=== PATIENT | male | born 1980 | race Caucasian/White ===

== ENCOUNTER 2016-03-28 17:50 | Day surgery (SDC) | payer MEDICAID ==
[~2016-03-28] VITALS: Ht 172.7 cm; Wt 83.0 kg
[~2016-03-28 17:50] MED LIST: HYDR-3498 PO; HYDR-762 PO
[2016-03-28 18:03] VITALS: Ht 172.7 cm; Wt 83.0 kg
[2016-03-28] MEDS ORDERED: morphine 4 MG/ML VIAL IV STA (19:48)
[2016-03-28] MEDS ORDERED: ONDANSETRON 4 MG INJ IV STA (19:48)
[2016-03-28] MEDS ORDERED: FAMOTIDINE 20 MG INJ IV STA (19:48)
--- NOTE | 2016-03-28 20:26 | ERD ---
ER Documentation Chief Complaint Date/Time DATE: 03/28/16 TIME: 20:23 Chief Complaint ABD PAIN X 2 HRS HPI This is a 35-year-old male who presents to the emergency department today complaining of abdominal pain for the past 3 hours. Patient states that he has also had some vomiting when he got here to the emergency room. States that his pain started after getting in an argument with his girlfriend. Denies any fevers or chills. Denies dysuria. States his last BM was this morning. ROS All systems reviewed and are negative except as per history of present illness. Medications Home Meds Active Scripts Hydrocodone Bit-Acetaminophen* ([place]*) 10-325 Mg Tablet, 1 TAB PO Q6 Y for PAIN , #10 TAB Prov:VIDYA SOLANO MD 12/23/14 Hydrocodone Bit-Acetaminophen* ([place]*) 5-325 Mg Tab, 1 TAB PO Q6 Y for PAIN, # 20 TAB Prov:RELL LEYVA 12/12/14 Allergies Allergies: Coded Allergies: No Known Allergy (Unverified , 12/12/14) PMhx/Soc Medical and Surgical Hx: pt denies Medical Hx, pt denies Surgical Hx History of Surgery: No Anesthesia Reaction: No Hx Neurological Disorder: No Hx Respiratory Disorders: No Hx Cardiac Disorders: No Hx Psychiatric Problems: No Hx Miscellaneous Medical Probl: No Hx Alcohol Use: No Hx Substance Use: No Hx Tobacco Use: No Smoking Status: Never smoker Physical Exam Vitals Vital Signs Date Time Temp Pulse Resp B/P Pulse Ox O2 Delivery O2 Flow Rate FiO2 03/28/16 18:03 98.1 67 18 142/79 98 Physical Exam Const: No acute distress Head: Atraumatic Eyes: Normal Conjunctiva ENT: Normal External Ears, Nose and Mouth. Neck: Full range of motion..~ No meningismus. Resp: Clear to auscultation bilaterally Cardio: Regular rate and rhythm, no murmurs Abd: Soft, epigastric pain non distended. Normal bowel sounds. Right lower quadrant pain and tenderness at McBurney's. No left lower quadrant pain. Skin: No petechiae or rashes Back: No midline or flank tenderness Ext: No cyanosis, or edema Neur: Awake and alert Psych: Normal Mood and Affect Result Diagram: 03/28/16200903/28/162009 Results 24 hrs Laboratory Tests Test 03/28/16 20:10 Alanine Aminotransferase (ALT/SGPT) 159IU/L Albumin 4.7g/dl Albumin/Globulin Ratio 1.23 Alkaline Phosphatase 67IU/L Anion Gap 18 Aspartate Amino Transf (AST/SGOT) 68IU/L Basophils # 0.010^3/ul Basophils % 0.2% Blood Urea Nitrogen 12mg/dl Calcium Level 9.5mg/dl Carbon Dioxide Level 29mmol/L Chloride Level 100mmol/L Creatinine 0.81mg/dl Direct Bilirubin 0.00mg/dl Eosinophils # 0.010^3/ul Eosinophils % 0.2% Globulin 3.80g/dl Glucose Level 120mg/dl Hematocrit 46.4% Hemoglobin 15.9g/dl Indirect Bilirubin 0.6mg/dl Lipase 22U/L Lymphocytes # 1.010^3/ul Lymphocytes % 5.9% Mean Corpuscular Hemoglobin 29.7pg Mean Corpuscular Hemoglobin Concent 34.3g/dl Mean Corpuscular Volume 86.5fl Mean Platelet Volume 10.0fl Monocytes # 0.710^3/ul Monocytes % 3.9% Neutrophils # 15.510^3/ul Neutrophils % 89.8% Nucleated Red Blood Cells # 0.010^3/ul Nucleated Red Blood Cells % 0.0/100WBC Platelet Count 47344^3/UL Potassium Level 4.5mmol/L Red Blood Count 5.3610^6/ul Red Cell Distribution Width 13.1% Sodium Level 142mmol/L Total Bilirubin 0.6mg/dl Total Protein 8.5g/dl Urine Bacteria RARE Urine Bilirubin 1+ Urine Clarity CLEAR Urine Color YELLOW Urine Glucose NEGATIVE% Urine Hemoglobin NEGATIVE Urine Ictotest NEGATIVE Urine Ketones NEGATIVE Urine Leukocyte Esterase NEGATIVE Urine Microscopic RBC NONE SEEN/HPF Urine Microscopic WBC 0-2/HPF Urine Mucus MODERATE Urine Nitrite NEGATIVE Urine Specific [place] >=1.030 Urine Squamous Epithelial Cells FEW Urine Total Protein TRACE Urine Urobilinogen 0.2 E.U./dL Urine pH 5.5 White Blood Count 17.210^3/ul Current Medications Medications (Trade) Dose Ordered Sig/Elo Route PRN Reason Start Time Stop Time Status Last Admin Dose Admin Morphine Sulfate (morphine) 4 mg ONCE STAT IV 03/28/16 19:48 03/28/16 19:50 DC 03/28/16 20:09 Ondansetron HCl (Zofran Inj) 4 mg ONCE STAT IV 03/28/16 19:48 03/28/16 19:50 DC 03/28/16 20:18 Famotidine 20 mg 20 mg ONCE STAT IV 03/28/16 19:48 03/28/16 19:50 DC 03/28/16 20:11 Sodium Chloride (NS) 1,000 ml @ 1,000 mls/hr Q1H ONCE IV 03/28/16 21:30 03/28/16 22:29 03/28/16 21:15 DIAGNOSTIC IMAGING REPORT Patient: ANTHONY YOUSSEF : 1980 Age: 35 Sex: M MR #: [id number] DOS: 03/28/161947 Ordering MD: BAILEY TOPETE PA-C Location: [facility] Room/Bed: PROCEDURE: CT abdomen and pelvis without contrast. CLINICAL INDICATION: Epigastric and right lower quadrant pain TECHNIQUE: CT scan of the abdomen and pelvis without contrast was performed on the [employer] volumetric [address] scanner . The patient was scanned without intravenous contrast. 3-D coronal reformatted images were obtained from the axial source images. CTDI 10.99 mGy DLP = 61 2.59 mGy-cm One or more of the following dose reduction techniques were used: Automated exposure control Adjustment of the mA and / or kV according to patient size Use of iterative reconstruction technique. COMPARISON: None. FINDINGS: CT abdomen/pelvis: The lung bases are clear. There is fatty infiltration of the liver with regions of focal fatty sparing. The gallbladder appears normal. The spleen, adrenal glands, and pancreas are normal. The kidneys are grossly unremarkable, without evidence of renal or ureteral calculus. There is no hydronephrosis. The appendix is mildly thickened, measuring up to 9 mm in diameter, and there is mild periappendiceal fat stranding. There is no free air or free fluid. There is no evidence of obstruction. The bladder is grossly unremarkable There are no suspicious osseous lesions. IMPRESSION: 1. Mild appendiceal wall thickening and periappendiceal fat stranding, concerning for acute appendicitis in the appropriate clinical setting. No free air or free fluid. 2. No renal or ureteral calculi. No hydronephrosis. 3. Fatty liver. Findings discussed with EFREM Fuentes PA-C at 03/28/2016 8:44:44 PM RPTAT: UU .Deven Abraham MD, MD Date Time Electronically viewed and signed by .Deven Abraham MD, on 03/28/2016 20: 45 .K/ CC: BAILEY TOPETE PA-C Procedures/MDM This is a 35-year-old male who presents to the emergency department today complaining of abdominal pain for the past couple of hours. On physical exam patient had a significant amount of epigastric and right lower quadrant pain and if I did obtain laboratory work as well as imaging. Laboratory work wasn't elevated white blood cell count of 17.2. Patient is not anemic. His platelets are within normal limits. Electrolytes are within normal limits. Liver function is elevated. Lipase is within normal limits. UA is negative for infection. CT abdomen and pelvis noncontrast shows a mild appendiceal wall thickening and periappendiceal fat stranding concerning for acute appendicitis. There is no free air or free fluid. There is no renal or ureteral cocci. There is no hydronephrosis. There is fatty infiltration of the liver. Gallbladder appears normal. I received a call from the radiologist Dr. Abraham Patients abdominal pain consistent with acute appendicitis. Patient was given morphine, Pepcid, Zofran, fluids and Invanz here in the emergency department. The case with Dr. Cabrera who suggested I speak to Dr. Grove the general surgeon on-call and the patient will go to the OR. Any further documentation or orders placed will be placed by Dr. Cabrera or the surgeon. Departure Diagnosis: Primary Impression: Acute appendicitis Acute appendicitis type: unspecified acute appendicitis type Qualified Code: K35.80 - Acute appendicitis, unspecified acute appendicitis type Condition: Fair BAILEY TOPETE PA-C Mar 28, 2016 20:26
[2016-03-28 20:31] LABS: ALBUMIN 4.7 g/dl (3.3-4.9); POTASSIUM 4.5 mmol/L (3.5-5.1)
[2016-03-28 20:33] LABS: CREATININE 0.81 mg/dl (0.61-1.24)
[2016-03-28 20:34] LABS: ALBUMIN/GLOBULIN RATIO 1.23; BASOPHILS % 0.2 % (0.0-2.0); BILIRUBIN,INDIRECT 0.6 mg/dl (0-1.1); BILIRUBIN,TOTAL 0.6 mg/dl (0.2-1.3); CALCIUM 9.5 mg/dl (8.4-10.2); EOSINOPHILS % 0.2 % (0.0-7.0); HEMATOCRIT 46.4 % (42.0-52.0); HEMOGLOBIN 15.9 g/dl (14.0-18.0); LYMPHOCYTES % 5.9 % (15.0-51.0); MEAN CORPUSCULAR HEMOGLOBIN 29.7 pg (29.0-33.0); MEAN CORPUSCULAR HGB CONC 34.3 g/dl (32.0-37.0); MEAN CORPUSCULAR VOLUME 86.5 fl (82.0-101.0); MONOCYTE # 0.7 10^3/ul (0.3-0.9); MONOCYTES % 3.9 % (0.0-11.0); NEUTROPHIL # 15.5 10^3/ul (1.6-7.5); NEUTROPHILS % 89.8 % (39.0-77.0); PLATELET COUNT 229 10^3/UL (140-440); RED BLOOD COUNT 5.36 10^6/ul (4.70-6.10); RED CELL DISTRIBUTION WIDTH 13.1 % (11.5-14.5); TOTAL PROTEIN 8.5 g/dl (6.1-8.1); UNCORRECTED WBC 17.2 10^3/ul (4.8-10.8); WHITE BLOOD COUNT 17.2 10^3/ul (4.8-10.8)
[2016-03-28 20:39] LABS: CONDITION 1
[2016-03-28 20:43] LABS: ADD UMIC YES; URINE BILIRUBIN (Dip) 1+ (NEGATIVE); URINE BLOOD (Dip) NEGATIVE (NEGATIVE); URINE COLOR YELLOW (YELLOW); URINE GLUCOSE (Dip) NEGATIVE (NEGATIVE); URINE KETONES (Dip) NEGATIVE (NEGATIVE); URINE LEUKOCYTE ESTERASE (Dip) NEGATIVE (NEGATIVE); URINE NITRITE (Dip) NEGATIVE (NEGATIVE); URINE TOTAL PROTEIN (Dip) TRACE (NEGATIVE); URINE UROBILINOGEN (Dip) 0.2 E.U./dL (0.1-1.0)
--- NOTE | 2016-03-28 20:45 | RADRPT ---
PROCEDURE: CT abdomen and pelvis without contrast. CLINICAL INDICATION: Epigastric and right lower quadrant pain TECHNIQUE: CT scan of the abdomen and pelvis without contrast was performed on the [employer] volumetric [address] scanner . The patient was scanned without intravenous contrast. 3-D coronal reformatted images were obtained from the axial source images. CTDI 10.99 mGy DLP = 61 2.59 mGy-cm One or more of the following dose reduction techniques were used: Automated exposure control Adjustment of the mA and / or kV according to patient size Use of iterative reconstruction technique. COMPARISON: None. FINDINGS: CT abdomen/pelvis: The lung bases are clear. There is fatty infiltration of the liver with regions of focal fatty sparing. The gallbladder appea rs normal. The spleen, adrenal glands, and pancreas are normal. The kidneys are grossly unremarkable, without evidence of renal or ureteral calculus. There is no h ydronephrosis. The appendix is mildly thickened, measuring up to 9 mm in diameter, and there is mild periappendicea l fat stranding. There is no free air or free fluid. There is no evidence of obstruction. The bladder is grossly unremarkable There are no suspicious osseous lesions. IMPRESSION: 1. Mild appendiceal wall thickening and periappendiceal fat stranding, concerning for acute appendi citis in the appropriate clinical setting. No free air or free fluid. 2. No renal or ureteral calculi. No hydronephrosis. 3. Fatty liver. Findings discussed with EFREM Fuentes PA-C at 03/28/2016 8:44:44 PM RPTAT: UU .Deven Abraham MD, MD Date Time Electronically viewed and signed by .Deven Abraham MD, on 03/28/2016 20:45 .K/
[2016-03-28 21:05] LABS: ICTOTEST NEGATIVE (NEGATIVE)
[2016-03-28 21:06] LABS: SQUAMOUS EPITHELIAL CELL,UR FEW; URINE RBCS NONE SEEN /HPF (0)
[2016-03-28 21:07] LABS: BACTERIA,URINE RARE; MUCUS,URINE MODERATE
[2016-03-28] MEDS ORDERED: ACETAMINOPHEN 325 MG TAB PO PRN (21:30)
[2016-03-28] MEDS ORDERED: ONDANSETRON 4 MG INJ IV PRN ×3 (21:30→23:30)
[2016-03-28] MEDS ORDERED: ERTAPENEM SODIUM 1 GM in SOD CHLORIDE 0.9% 100 ML IVPB ONE (21:30)
[2016-03-28] MEDS ORDERED: SOD CHLORIDE 0.9% 1,000 ML IV ONE (21:30)
[2016-03-28] MEDS ORDERED: BUPIVACAINE 0.25%/EPI (SDV) 30 ML INJ ONE (21:47)
[2016-03-28] MEDS ORDERED: LIDOCAINE 1%/EPI (MDV) 20 ML INJ ONE (21:47)
[2016-03-28] MEDS ORDERED: FENTAnyl 50 MCG/ML VIAL ONE (22:25)
[2016-03-28] MEDS ORDERED: MIDAZOLAM 1 MG/ML 2 ML INJ ONE (22:25)
[2016-03-28] MEDS ORDERED: SUCCINYLCHOLINE CHLORIDE 100 MG/5 ML SYG IV ONE (22:26)
[2016-03-28] MEDS ORDERED: PROPOFOL 20 ML ONE (22:26)
[2016-03-28] MEDS ORDERED: LIDOCAINE 2% (SDV) 5 ML INJ ONE (22:26)
[2016-03-28] MEDS ORDERED: OXYCODONE/ACETAMINOPHEN (5/325) TAB PO PRN ×4 (22:30→23:30)
[2016-03-28] MEDS ORDERED: morphine 10 MG INJ IM PRN (22:30)
--- NOTE | 2016-03-28 22:31 | CONS ---
DATE OF ADMISSION: 03/28/2016 DATE OF CONSULTATION: 03/28/2016 HISTORY OF PRESENT ILLNESS: Mr. Marti a 35-year-old male who was in his usual state of heal th today until he developed acute onset of abdominal pain. His symptoms were so severe he presented to the ER. He had an episode of emesis here in the ER. Denies prior symptoms. PAST MEDICAL HISTORY: Noncontributory. PAST SURGICAL HISTORY: None. MEDICATIONS: None. ALLERGIES: NO KNOWN DRUG ALLERGIES. SOCIAL HISTORY: Drinks occasionally. Denies smoking or drug use. PHYSICAL EXAMINATION: GENERAL: He is a well-developed, well-nourished male in no apparent distress. He is currently afeb rile. VITAL SIGNS: Stable. CHEST: Clear to auscultation bilaterally. HEART: Regular rhythm. ABDOMEN: Soft, nondistended but significant right lower quadrant tenderness. LABORATORY DATA: White count of 17, hematocrit of 46 and platelets of 229. Sodium 142, potassium 4 .5, chloride 100, CO2 29, BUN and creatinine 12 and 0.8 and glucose 120. IMAGING: A CT was consistent with acute appendicitis. ASSESSMENT AND PLAN: Mr. Marti is a 35-year-old male with acute appendicitis. I discussed laparoscopic, possible open appendectomy with the patient. All benefits, risks, alternatives discus sed in detail. All questions answered. The patient elects to proceed. Dictated By: NORMA CHOI/AJ Conf#: [id number] DID#: [id number]
[2016-03-28] MEDS ORDERED: METOCLOPRAMIDE 10 MG INJ ONE (22:55)
[2016-03-28] MEDS ORDERED: ONDANSETRON 4 MG INJ ONE (22:55)
[2016-03-28] MEDS ORDERED: ROCURONIUM 50 MG INJ ONE (22:55)
[2016-03-28] MEDS ORDERED: NEOSTIGMINE 3 MG/3 ML SYRINGE ONE ×2 (22:58)
[2016-03-28] MEDS ORDERED: GLYCOPYRROLATE 0.4 MG INJ ONE ×2 (22:58)
[2016-03-28 23:30] VITALS: BP 126/68; RESP 16
[2016-03-28] MEDS ORDERED: MEPERIDINE 25 MG INJ IV PRN (23:30)
[2016-03-28] MEDS ORDERED: PROCHLORPERAZINE 10 MG INJ IV PRN (23:30)
[2016-03-28] MEDS ORDERED: HYDROmorphONE (0.2 MG/ML) 10ML SYG IV PRN ×2 (23:30)
[2016-03-28] MEDS ORDERED: DIPHENHYDRAMINE 50 MG INJ IV PRN (23:30)
[2016-03-28] MEDS: FENTAnyl 50 MCG/ML VIAL IV PRN ×2 (23:32→23:45)
[2016-03-28 23:35] VITALS: BP 132/80; RESP 16
[2016-03-28 23:40] VITALS: BP 125/70; RESP 16
[2016-03-28 23:45] VITALS: BP 133/74; RESP 16
--- NOTE | 2016-03-28 23:45 | OPR ---
DATE OF OPERATION: 03/28/2016 PREOPERATIVE DIAGNOSIS: Acute appendicitis. POSTOPERATIVE DIAGNOSIS: Acute appendicitis. PROCEDURE: Laparoscopic appendectomy. SURGEON: Norma Grove MD STATION JAILER: None. ANESTHESIA: General endotracheal. ANESTHESIOLOGIST: Drea Abraham MD ESTIMATED BLOOD LOSS: Minimal. COMPLICATIONS: None. SPECIMENS: Appendix. FINDINGS: Acute appendicitis. INDICATIONS: Mr. Marti is a 35-year-old male who developed acute onset of generalized abdom inal pain localizing to his right lower quadrant over the course of today. He went to the ER at [facility], where his workup was consistent with acute appendicitis. I was called for consult ation. I discussed laparoscopic, possible open appendectomy with the patient. All benefits, risks, alternatives were discussed in detail, all questions answered, and patient elected to proceed. PROCEDURE: The patient was brought to the operating room, placed supine on the table. After preope rative antibiotics and SCDs were placed, the patient was intubated, and the abdomen was cleaned, pre pped and draped in usual sterile fashion. All incisions were infiltrated with 1% lidocaine with epi nephrine, 0.5% Marcaine prior to incision. A 5 mm incision was made in the umbilicus. Using a 5 mm laparoscope containing trocar, the abdomen was entered under direct vision and insufflated to 15 mm Hg of CO2. The following trocars were then placed under direct vision: A right lower quadrant 5 mm and a left lower quadrant 12 mm. Emanating from the cecum was an obvious acute appendicitis. Ther e were some retroperitoneal attachments which were taken down with electrocautery to further expose the base of the appendix. The base was uninvolved. I was able to make a rent in the base of the me sentery of the appendix and divide the cecum at the base of the appendix with a 35 mm Endo linear cu tter white load. The appendix was then elevated, and the mesentery was divided with a 35 mm Endo li near cutter white load. The appendix was placed in EndoCatch bag, removed from the 12 mm trocar sit e. I then irrigated the right lower quadrant and pelvis until effluent was clear. I visualized my staple line. It was hemostatic. I then desufflated the abdomen and removed all trocars. The fasci a of the 12 mm trocar site was closed with 0 Vicryl. Skin incisions were all closed with 4-0 Monocr yl, Mastisol, Steri-Strips. The patient tolerated procedure well, was extubated in the OR and trans ferred to the recovery room in stable condition. Dictated By: NORMA CHOI/AJ Conf#: [id number] DID#: [id number]
[2016-03-28 23:50] VITALS: BP 127/70; RESP 16
[2016-03-28 23:55] VITALS: BP 128/75; PULSE 90; RESP 21
[2016-03-29] VITALS (16 sets, daily range): BP systolic 111–130; BP diastolic 63–80; PULSE 82–112; RESP 14–31
[2016-03-29] MEDS: FENTAnyl 50 MCG/ML VIAL IV PRN ×2 (00:10→00:35)
== END 2016-03-29 01:35 | disposition home or self-care (01) ==
LOC: FTE 17:50 → SDS 22:12
PROVIDERS: ATTEND Surgery
DX: K35.80 Unspecified acute appendicitis (principal)
CPT/HCPCS: 44970; 74176; 80053; 81001; 83690; 85025; 88304; 93005; J0330; J1335; J2175; J2250; J2270; J2405; J2710; J2765; J3010; J7030; Z7610; 81003